=== PATIENT | female | born 1995 | race Caucasian/White ===

== ENCOUNTER → 2022-08-02 | Outpatient (REF) ==
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
== END | disposition home or self-care (01) ==
LOC: OCC 10:22
PROVIDERS: ATTEND Family Medicine
DX: Z01.818 Encounter for other preprocedural examination (principal)
CPT/HCPCS: 70150; 72040

== ENCOUNTER → 2022-11-06 | Outpatient (REF) ==
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
== END | disposition home or self-care (01) ==
LOC: OCC 11:00
PROVIDERS: ATTEND Nurse Practitioner Family
DX: Z01.818 Encounter for other preprocedural examination (principal)
CPT/HCPCS: 70160

== ENCOUNTER → 2022-11-13 | Outpatient (REF) ==
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
== END | disposition home or self-care (01) ==
LOC: OCC 10:04
PROVIDERS: ATTEND Nurse Practitioner Family
DX: Z01.818 Encounter for other preprocedural examination (principal)
CPT/HCPCS: 70100; 73562